=== PATIENT | male | born 2000 | race Caucasian/White ===

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

== ENCOUNTER → 2023-04-25 | Outpatient (CLI) | payer BC ==
--- NOTE | 2023-04-25 08:47 | US ---
EXAMINATION TYPE: US thyroid st tissue head/neck DATE OF EXAM: 04/25/2023 COMPARISON: NONE CLINICAL INDICATION: Male, 22 years old with history of R13.10 DYSPHAGIA; Dysphagia GLAND SIZE: Right Lobe: 4.8 x 1.8 x 1.6 cm Overall Parenchyma: homogenous Left Lobe: 5.2 x 1.5 x 1.6 cm Overall Parenchyma: homogeneous Isthmus Thickness: .2 cm NODULES RIGHT: # of nodules measured on right: 0 LEFT: # of nodules measured on left: 0 ISTHMUS: # of nodules measured in the isthmus: 0 Bilateral neck scanned, no evidence of lymphadenopathy. IMPRESSION: Mild glandular enlargement. Otherwise unremarkable study.
== END | disposition home or self-care (01) ==
LOC: RADUSWWP 08:20
PROVIDERS: ATTEND Internal Medicine Critical Care Medicine
DX: R13.10 Dysphagia, unspecified (principal); R59.0 Localized enlarged lymph nodes
CPT/HCPCS: 76536

== ENCOUNTER 2023-12-16 02:29 | Inpatient (IN) | payer BC ==
--- NOTE | 2023-12-16 03:21 | ED ---
General Adult HPI - General Chief complaint: Chest Pain Stated complaint: chest pain Time Seen by Provider: 12/16/23 02:42 Source: patient, RN notes reviewed, old records reviewed Mode of arrival: ambulatory Limitations: no limitations - History of Present Illness Initial comments: 23-year-old male with right-sided chest pain. Pain is in the right anterior chest radiating through to his right shoulder. He does report some right upper quadrant pain as well. Pain woke him from sleep. He denies prior history of pneumothorax, no history of DVT or PE. No history of CAD. There is no substernal chest pain. No lower extremity pain or swelling. No preceding cough or fever. Denies illicit drugs. - Related Data Home Medications Medication Instructions Recorded Confirmed Albuterol Sulfate [Proair Hfa] 2 puff INHALATION RT-Q6H PRN 10/17/17 10/17/17 Budesonide/Formoterol Fumarate 2 puff INHALATION RT-BID PRN 10/17/17 10/17/17 [Symbicort 160-4.5 Mcg Inhaler] Montelukast [Singulair] 10 mg PO DAILY 10/17/17 10/17/17 Allergies Allergy/AdvReac Type Severity Reaction Status Date / Time No Known Allergies Allergy Verified 12/16/23 02:41 Review of Systems ROS Statement: Those systems with pertinent positive or pertinent negative responses have been documented in the HPI. ROS Other: All systems not noted in ROS Statement are negative. Past Medical History Past Medical History: Asthma History of Any Multi-Drug Resistant Organisms: None Reported Past Surgical History: No Surgical Hx Reported Past Psychological History: No Psychological Hx Reported Smoking Status: Current some day smoker, Vaper Past Alcohol Use History: Occasional Past Drug Use History: Marijuana General Exam Limitations: no limitations General appearance: alert, in no apparent distress Head exam: Present: atraumatic, normocephalic Eye exam: Present: normal appearance, PERRL ENT exam: Present: normal exam Neck exam: Present: normal inspection. Absent: tenderness, meningismus Respiratory exam: Present: normal lung sounds bilaterally. Absent: respiratory distress, wheezes Cardiovascular Exam: Present: regular rate, normal rhythm GI/Abdominal exam: Present: soft, tenderness (Right upper quadrant). Absent: distended Extremities exam: Present: normal inspection, normal capillary refill Neurological exam: Present: alert, oriented X3, CN II-XII intact. Absent: motor sensory deficit Psychiatric exam: Present: normal affect, normal mood Skin exam: Present: warm, dry, intact Course Vital Signs 12/16/23 02:37 Temperature 98.0 F Pulse Rate 64 Respiratory 20 Rate Blood Pressure 142/95 O2 Sat by Pulse 98 Oximetry Medical Decision Making - Medical Decision Making Was pt. sent in by a medical professional or institution (, [facility] [employer], urgent care, hospital, or fci...) When possible be specific @ -No Did you speak to anyone other than the patient for history (EMS, parent, family, police, friend...)? What history was obtained from this source @ -No Did you review nursing and triage notes (agree or disagree)? Why? @ -I reviewed and agree with nursing and triage notes Were old charts reviewed (outside hosp., previous admission, EMS record, old EKG, old radiological studies, urgent care reports/EKG's, fci records)? Report findings @ -No old charts were reviewed Differential Diagnosis (chest pain, altered mental status, abdominal pain women, abdominal pain men, vaginal bleeding, weakness, fever, dyspnea, syncope, headache, dizziness, GI bleed, back pain, seizure, CVA, palpatations, mental health, musculoskeletal)? @ -[Differential Chest Pain: Stable Angina, Unstable Angina, STEMI, NSTEMI Aortic Dissection, Pneumothorax, Musculoskeletal, Esophageal Spasm GERD, Cholecystitis, Pancreatitis, Zoster, this is not meant to be an all-inclusive list. EKG interpreted by me (3pts min.). @Sinus rhythm rate of 62, MD interval 160, QRS duration 80, QTc 370, ST segment elevation in V3, V4 and V5 consistent with early repolarization, no reciprocal change. X-rays interpreted by me (1pt min.). @ -Chest x-ray negative for acute cardiopulmonary findings. CT interpreted by me (1pt min.). @ -None done U/S interpreted by me (1pt. min.). @ -Ultrasound liver and gallbladder as well as echocardiogram have been ordered, results pending. What testing was considered but not performed or refused? (CT, X-rays, U/S, labs)? Why? @ -None What meds were considered but not given or refused? Why? @ -None Did you discuss the management of the patient with other professionals (professionals i.e. , [facility] [employer], lab, RT, psych nurse, drug abuse social worker, card room manager, teacher, risk control officer, heel caser)? Give summary @ -[Dr. Slade covering for cardiology, recommends echo and serial cardiac enzymes. No heparin at this time. Discussed with Dr. Feliciano who will admit Was smoking cessation discussed for >3mins.? @ -No Was critical care preformed (if so, how long)? @ -No Were there social determinants of health that impacted care today? How? (Homele ssness, low income, unemployed, alcoholism, drug addiction, transportation, low edu. Level, literacy, decrease access to med. care, [facility], rehab)? @ -No Was there de-escalation of care discussed even if they declined (Discuss DNR or withdrawal of care, Hospice)? DNR status @ -No What co-morbidities impacted this encounter? (DM, HTN, Smoking, COPD, CAD, Cancer, CVA, ARF, Chemo, Hep., AIDS, mental health diagnosis, sleep apnea, morbid obesity)? @ -None Was patient admitted / discharged? Hospital course, mention meds given and route, prescriptions, significant lab abnormalities, going to OR and other pertinent info. @ -23-year-old male presents for evaluation of right sided chest pain radiating to the right shoulder. Patient does have some right upper quadrant abdominal tenderness on exam. He has no substernal or left-sided chest pain. Pulse exam is symmetric. Vitals are stable. EKG is sinus rhythm with ST segment elevation consistent with early repolarization without reciprocal change. Patient has normal CBC, CMP shows elevated AST and ALT. Given the abdominal tenderness with transaminitis ultrasound has been ordered. Patient also has an elevated troponin at 1.6. This is discussed with cardiology, at this time recommending serial cardiac enzymes, and echocardiogram. Patient will be admitted to his primary care provider, with cardiology on consult. Undiagnosed new problem with uncertain prognosis? @ -No Drug Therapy requiring intensive monitoring for toxicity (Heparin, Nitro, Insulin, Cardizem)? @ -No Were any procedures done? @ -No Diagnosis/symptom? @ -[Chest pain, elevated troponin, transaminitis, rule out myocarditis Acute, or Chronic, or Acute on Chronic? @ -Acute Uncomplicated (without systemic symptoms) or Complicated (systemic symptoms)? @ -Complicated Side effects of treatment? @ -No Exacerbation, Progression, or Severe Exacerbation? @ -No Poses a threat to life or bodily function? How? (Chest pain, [place], [place], pneumonia, PE, COPD, DKA, ARF, appy, cholecystitis, CVA, Diverticulitis, Homicidal, Suicidal, threat to staff... and all critical care pts) @ -Moderate risk, myocarditis, ACS - Lab Data Result diagrams: 12/16/23 03:12/16/23 03: Lab Results 12/16/23 12/16/23 12/16/23 Range/Units :24 :28 12: WBC 6.9 (3.8-10.6) k/uL RBC 5.65 (4.30-5.90) m/uL Hgb 16.9 (13.0-17.5) gm/dL Hct 47.2 (39.0-53.0) % MCV 83.6 (80.0-100.0) fL MCH 30.0 (25.0-35.0) pg MCHC 35.9 (31.0-37.0) g/dL RDW 12.7 (11.5-15.5) % Plt Count 163 (150-450) k/uL MPV 7.2 Neutrophils % (Manual) 48 % Lymphocytes % (Manual) 42 % Monocytes % (Manual) 9 % Eosinophils % (Manual) 1 % Neutrophils # (Manual) 3.31 (1.3-7.7) k/uL Lymphocytes # (Manual) 2.90 (1.0-4.8) k/uL Monocytes # (Manual) 0.62 (0-1.0) k/uL Eosinophils # (Manual) 0.07 (0-0.7) k/uL Nucleated RBCs 0 (0-0) /100 WBC Manual Slide Review Performed RBC Morphology Normal PT 11.0 (10.0-12.5) sec INR 1.0 (<1.2) APTT 27.1 (22.0-30.0) sec D-Dimer 0.28 (<0.60) mg/L FEU Sodium 138 (137-145) mmol/L Potassium 3.8 (3.5-5.1) mmol/L Chloride 104 (98-107) mmol/L Carbon Dioxide 26 (22-30) mmol/L Anion Gap 8 mmol/L BUN 14 (9-20) mg/dL Creatinine 0.87 (0.66-1.25) mg/dL Est GFR (CKD-EPI)AfAm >90 (>60 ml/min/1.73 sqM) Est GFR (CKD-EPI)NonAf >90 (>60 ml/min/1.73 sqM) Glucose 140 H (74-99) mg/dL Calcium 9.3 (8.4-10.2) mg/dL Magnesium 2.0 (1.6-2.3) mg/dL Total Bilirubin 1.1 (0.2-1.3) mg/dL AST 525 H (17-59) U/L ALT 183 H (4-49) U/L Alkaline Phosphatase 118 (38-126) U/L Troponin I (0.000-0.034) ng/mL Total Protein 8.1 (6.3-8.2) g/dL Albumin 5.0 (3.5-5.0) g/dL Lipase 194 (23-300) U/L Urine Opiates Screen (NotDetected) Ur Oxycodone Screen (NotDetected) Urine Methadone Screen (NotDetected) Ur Barbiturates Screen (NotDetected) U Tricyclic Antidepress (NotDetected) Ur Phencyclidine Scrn (NotDetected) Ur Amphetamines Screen (NotDetected) U Methamphetamines Scrn (NotDetected) U Benzodiazepines Scrn (NotDetected) Urine Cocaine Screen (NotDetected) U Marijuana (THC) Screen (NotDetected) Influenza Type A (PCR) (Not Detectd) Influenza Type B (PCR) (Not Detectd) RSV (PCR) (Not Detectd) SARS-CoV-2 (PCR) (Not Detectd) 12/16/23 12/16/23 12/16/23 Range/Units 03:24 05:26 05:38 WBC (3.8-10.6) k/uL RBC (4.30-5.90) m/uL Hgb (13.0-17.5) gm/dL Hct (39.0-53.0) % MCV (80.0-100.0) fL MCH (25.0-35.0) pg MCHC (31.0-37.0) g/dL RDW (11.5-15.5) % Plt Count (150-450) k/uL MPV Neutrophils % (Manual) % Lymphocytes % (Manual) % Monocytes % (Manual) % Eosinophils % (Manual) % Neutrophils # (Manual) (1.3-7.7) k/uL Lymphocytes # (Manual) (1.0-4.8) k/uL Monocytes # (Manual) (0-1.0) k/uL Eosinophils # (Manual) (0-0.7) k/uL Nucleated RBCs (0-0) /100 WBC Manual Slide Review RBC Morphology PT (10.0-12.5) sec INR (<1.2) APTT (22.0-30.0) sec D-Dimer (<0.60) mg/L FEU Sodium (137-145) mmol/L Potassium (3.5-5.1) mmol/L Chloride (98-107) mmol/L Carbon Dioxide (22-30) mmol/L Anion Gap mmol/L BUN (9-20) mg/dL Creatinine (0.66-1.25) mg/dL Est GFR (CKD-EPI)AfAm (>60 ml/min/1.73 sqM) Est GFR (CKD-EPI)NonAf (>60 ml/min/1.73 sqM) Glucose (74-99) mg/dL Calcium (8.4-10.2) mg/dL Magnesium (1.6-2.3) mg/dL Total Bilirubin (0.2-1.3) mg/dL AST (17-59) U/L ALT (4-49) U/L Alkaline Phosphatase (38-126) U/L Troponin I 1.670 H* 4.120 H* (0.000-0.034) ng/mL Total Protein (6.3-8.2) g/dL Albumin (3.5-5.0) g/dL Lipase (23-300) U/L Urine Opiates Screen Not Detected (NotDetected) Ur Oxycodone Screen Not Detected (NotDetected) Urine Methadone Screen Not Detected (NotDetected) Ur Barbiturates Screen Not Detected (NotDetected) U Tricyclic Antidepress Not Detected (NotDetected) Ur Phencyclidine Scrn Not Detected (NotDetected) Ur Amphetamines Screen Not Detected (NotDetected) U Methamphetamines Scrn Not Detected (NotDetected) U Benzodiazepines Scrn Not Detected (NotDetected) Urine Cocaine Screen Not Detected (NotDetected) U Marijuana (THC) Screen Detected H (NotDetected) Influenza Type A (PCR) (Not Detectd) Influenza Type B (PCR) (Not Detectd) RSV (PCR) (Not Detectd) SARS-CoV-2 (PCR) (Not Detectd) 12/16/23 Range/Units 05:38 WBC (3.8-10.6) k/uL RBC (4.30-5.90) m/uL Hgb (13.0-17.5) gm/dL Hct (39.0-53.0) % MCV (80.0-100.0) fL MCH (25.0-35.0) pg MCHC (31.0-37.0) g/dL RDW (11.5-15.5) % Plt Count (150-450) k/uL MPV Neutrophils % (Manual) % Lymphocytes % (Manual) % Monocytes % (Manual) % Eosinophils % (Manual) % Neutrophils # (Manual) (1.3-7.7) k/uL Lymphocytes # (Manual) (1.0-4.8) k/uL Monocytes # (Manual) (0-1.0) k/uL Eosinophils # (Manual) (0-0.7) k/uL Nucleated RBCs (0-0) /100 WBC Manual Slide Review RBC Morphology PT (10.0-12.5) sec INR (<1.2) APTT (22.0-30.0) sec D-Dimer (<0.60) mg/L FEU Sodium (137-145) mmol/L Potassium (3.5-5.1) mmol/L Chloride (98-107) mmol/L Carbon Dioxide (22-30) mmol/L Anion Gap mmol/L BUN (9-20) mg/dL Creatinine (0.66-1.25) mg/dL Est GFR (CKD-EPI)AfAm (>60 ml/min/1.73 sqM) Est GFR (CKD-EPI)NonAf (>60 ml/min/1.73 sqM) Glucose (74-99) mg/dL Calcium (8.4-10.2) mg/dL Magnesium (1.6-2.3) mg/dL Total Bilirubin (0.2-1.3) mg/dL AST (17-59) U/L ALT (4-49) U/L Alkaline Phosphatase (38-126) U/L Troponin I (0.000-0.034) ng/mL Total Protein (6.3-8.2) g/dL Albumin (3.5-5.0) g/dL Lipase (23-300) U/L Urine Opiates Screen (NotDetected) Ur Oxycodone Screen (NotDetected) Urine Methadone Screen (NotDetected) Ur Barbiturates Screen (NotDetected) U Tricyclic Antidepress (NotDetected) Ur Phencyclidine Scrn (NotDetected) Ur Amphetamines Screen (NotDetected) U Methamphetamines Scrn (NotDetected) U Benzodiazepines Scrn (NotDetected) Urine Cocaine Screen (NotDetected) U Marijuana (THC) Screen (NotDetected) Influenza Type A (PCR) Not Detected (Not Detectd) Influenza Type B (PCR) Not Detected (Not Detectd) RSV (PCR) Not Detected (Not Detectd) SARS-CoV-2 (PCR) Not Detected (Not Detectd) Disposition Clinical Impression: Atypical chest pain, Transaminitis, Elevated troponin Disposition: ADMITTED IP TO THIS HOSP Condition: Stable Is patient prescribed a controlled substance at d/c from ED?: No Referrals: Ramez Arriaza Jr, DO [Primary Care Provider] - 1-2 days Time of Disposition: 05:56
[2023-12-16] MEDS: KETOROLAC 15 MG/ML 1 ML VIAL IVP STA (03:26)
[2023-12-16 03:49] LABS: HCT 47.2 % (39.0-53.0); HGB 16.9 gm/dL (13.0-17.5); MCHC 35.9 g/dL (31.0-37.0); MCV 83.6 fL (80.0-100.0); Mean Platelet Volume 7.2; Platelet Count 163 k/uL (150-450); RBC 5.65 m/uL (4.30-5.90); RDW 12.7 % (11.5-15.5); WBC 6.9 k/uL (3.8-10.6)
[2023-12-16 03:53] LABS: ALT 183 U/L (4-49); AST 525 U/L (17-59); African American GFR (CKD) >90 (>60 ml/min/1.73 sqM); Alkaline Phosphatase 118 U/L (38-126); Anion Gap 8 mmol/L; Blood Urea Nitrogen 14 mg/dL (9-20); Calcium 9.3 mg/dL (8.4-10.2); Carbon Dioxide 26 mmol/L (22-30); Chloride 104 mmol/L (98-107); Glucose 140 mg/dL (74-99); Lipase 194 U/L (23-300); Non-African American GFR(CKD) >90 (>60 ml/min/1.73 sqM); Potassium 3.8 mmol/L (3.5-5.1); Sodium 138 mmol/L (137-145); Total Bilirubin 1.1 mg/dL (0.2-1.3); Total Protein 8.1 g/dL (6.3-8.2)
[2023-12-16 04:00] LABS: Partial Thromboplastin Time 27.1 sec (22.0-30.0)
[2023-12-16 05:01] LABS: RBC Morphology Normal
[2023-12-16 05:17] LABS: Eosinophils # (M) 0.07 k/uL (0-0.7); Monocytes # (M) 0.62 k/uL (0-1.0); Neutrophils # (M) 3.31 k/uL (1.3-7.7); Neutrophils % (M) 48 %; Nucleated Red Blood Cells 0 /100 WBC (0-0); Total Cells Counted 100
[2023-12-16] MEDS: ASPIRIN 325 MG TAB PO STA (05:28)
[2023-12-16 05:58] LABS: Amphetamine Screen,Urine Not Detected (NotDetected); Barbiturate Screen,Urine Not Detected (NotDetected); Benzodiazepines Screen,Urine Not Detected (NotDetected); Cocaine Screen,Urine Not Detected (NotDetected); Methadone Screen, Urine Not Detected (NotDetected); Opiate Screen,Urine Not Detected (NotDetected); Oxycodone Screen, Urine Not Detected (NotDetected); Phencyclidine Screen,Urine Not Detected (NotDetected); Tricyclic Antidepressant,Urine Not Detected (NotDetected); Urn Cannabinoid Scrn Detected (NotDetected)
[2023-12-16] MEDS ORDERED: ONDANSETRON 4 MG/2 ML VIAL IVP PRN (06:34)
[2023-12-16] MEDS ORDERED: NALOXONE 0.4 MG/ML 1 ML VIAL IV PRN (06:34)
[2023-12-16] MEDS ORDERED: IBUPROFEN 400 MG TAB PO PRN (06:34)
[2023-12-16] MEDS: SODIUM CHLORIDE 0.9% 1,000 ML IV SCH ×2 (07:00→18:59)
--- NOTE | 2023-12-16 07:33 | XR ---
EXAMINATION TYPE: XR chest 2V DATE OF EXAM: 12/16/2023 COMPARISON: 08/13/2018 HISTORY: 23 year-old male shortness of breath TECHNIQUE: PA and lateral views FINDINGS: Heart normal size. Aorta and pulmonary vasculature within normal limits. No consolidation or pleural effusion. IMPRESSION: No acute cardiopulmonary process.
--- NOTE | 2023-12-16 07:52 | US ---
EXAMINATION TYPE: US gallbladder DATE OF EXAM: 12/16/2023 COMPARISON: None CLINICAL INDICATION: Male, 23 years old with history of RUQ pain; Chest pain TECHNIQUE: Multiple sonographic images of the right upper quadrant are obtained. FINDINGS: EXAM MEASUREMENTS: Liver Length: 15.5 cm Gallbladder Wall: 0.2 cm CBD: 0.3 cm Right Kidney: 10.9 x 4.6 x 4.8 cm Pancreas: obscured by overlying midline bowel gas Liver: wnl Gallbladder: wnl Evidence for sonographic Richey's sign: no CBD: wnl Right Kidney: wnl IMPRESSION: No gallstones or biliary ductal dilatation. Suboptimal visualization of pancreas due to shadowing fro m bowel gas. Otherwise, no specific abnormality seen in the right upper quadrant.
[2023-12-16] MEDS ORDERED: NITROGLYCERIN SL TABS 0.4 MG TAB SUBLINGUAL PRN (09:10)
[2023-12-16] MEDS ORDERED: ASPIRIN 325 MG TAB PO STA (09:10)
[2023-12-16] MEDS ORDERED: ALPRAZolam 0.5 MG TAB PO PRN (09:10)
[2023-12-16] MEDS ORDERED: ALPRAZolam 0.25 MG TAB PO PRN (09:10)
[2023-12-16] MEDS: ATORVASTATIN 80 MG TAB PO STA (10:56)
[2023-12-16] MEDS: PANTOPRAZOLE 40 MG/10 ML VIAL IVP SCH (10:57)
--- NOTE | 2023-12-16 11:19 | CA ---
Transthoracic Echo Report Name: Osito Blount Age: 23 Gender: M : 2000 Exam Date: 12/16/2023 08:27 Exam Location: [facility] Ht (in): 65 Wt (lb): 145 Ordering Physician: Matthew Zhao MD Attending/Referring Phys: [id number], Cece Credit Controller Katelyn Benitez RDCS Procedure CPT: Indications: CP/NSTEMI Cardiac Hx: Technical Quality: Good Contrast 1: Total Dose (mL): Contrast 2: Total Dose (mL): MEASUREMENTS (Male / Female) Normal Values 2D ECHO LV Diastolic Diameter PLAX 4.5 cm 4.2 - 5.9 / 3.9 - 5.3 cm LV Systolic Diameter PLAX 3.1 cm IVS Diastolic Thickness 0.8 cm 0.6 - 1.0 / 0.6 - 0.9 cm LVPW Diastolic Thickness 0.9 cm 0.6 - 1.0 / 0.6 - 0.9 cm LV Relative Wall Thickness 0.4 RV Internal Dim ED PLAX 3.1 cm LA Systolic Diameter LX 3.3 cm 3.0 - 4.0 / 2.7 - 3.8 cm LV Diastolic Volume MOD 4C 99.0 cm??? LV Systolic Volume MOD 4C 48.2 cm??? LV Ejection Fraction MOD 4C 51.3 % LV Cardiac Index MOD 4C 1893.4 cm???/min???m??? LV Diastolic Length 4C 9.5 cm LV Systolic Length 4C 7.8 cm LV Diastolic Volume MOD 2C 130.9 cm??? LV Systolic Volume MOD 2C 51.8 cm??? LV Ejection Fraction MOD 2C 60.5 % LV Cardiac Index MOD 2C 2948.5 cm???/min???m??? LV Diastolic Length 2C 9.7 cm LV Systolic Length 2C 7.6 cm M-MODE Aortic Root Diameter MM 2.7 cm DOPPLER AV Peak Velocity 157.0 cm/s AV Peak Gradient 9.9 mmHg MV Area PHT 2.8 cm??? Mitral E Point Velocity 89.6 cm/s Mitral A Point Velocity 71.8 cm/s Mitral E to A Ratio 1.2 MV Deceleration Time 270.9 ms FINDINGS Left Ventricle Left ventricular ejection fraction is estimated at 60-65 %. Left ventricular cavity size normal. Left ventricular wall thickness normal. Normal left ventricular wall motion. Right Ventricle Normal right ventricular size. Unable to estimate the right ventricular systolic pressure. Right Atrium Normal right atrial size. Left Atrium Normal left atrial size. Mitral Valve Structurally normal mitral valve. No mitral stenosis, regurgitation or prolapse. Aortic Valve Trileaflet aortic valve. No aortic valve stenosis or regurgitation. Tricuspid Valve Structurally normal tricuspid valve. No tricuspid stenosis, regurgitation or prolapse. Pulmonic Valve Structurally normal pulmonic valve. No pulmonic regurgitation. Pericardium No pericardial effusion. Aorta Normal size aortic root and proximal ascending aorta. CONCLUSIONS Normal biventricular dimension and systolic function The aortic valve is probably trileaflet valve. On some views is hard to exclude bicuspid aortic valve No evidence of pericardial effusion Previewed by: Dr. Tad Boyle MD (Electronically Signed) Final Date: 16 December 2023 11:18
[2023-12-16] MEDS ORDERED: fentaNYL (PF) 50 MCG/ML 2 ML AMP ONE (12:52)
[2023-12-16] MEDS ORDERED: HEPARIN SODIUM 1,000 UN/ML (10ML VL) ONE (12:52)
[2023-12-16] MEDS ORDERED: LIDOCAINE 1% INJ 10MG/ML (20 ML MDV) ONE (12:53)
[2023-12-16] MEDS ORDERED: VERAPAMIL 2.5 MG/ML 2 ML AMP ONE (12:53)
[2023-12-16] MEDS: IV FLUID CONTINUATION 1,000 ML IV ONE (13:00)
[2023-12-16] MEDS: MIDAZOLAM 2 MG/2 ML VIAL IVP ONE ×2 (13:34→13:47)
[2023-12-16] MEDS: fentaNYL (PF) 50 MCG/ML 2 ML AMP IVP ONE (13:34)
[2023-12-16] MEDS: LIDOCAINE 1% INJ 10MG/ML (20 ML MDV) SQ ONE (13:35)
[2023-12-16] MEDS: VERAPAMIL SYRINGE (5 MG/10 ML) INTRAARTER ONE (13:40)
[2023-12-16] MEDS: HEPARIN SODIUM 1,000 UN/ML (10ML VL) IVP ONE (13:42)
--- NOTE | 2023-12-16 13:44 | P.CRDCN ---
History of Present Illness Consult date: 12/16/23 Consult reason: chest pain History of present illness: History of present illness: This is a 23-year-old male with no previous cardiac history does not follow with a university professor. He has a past medical history of asthma. We have been asked to evaluate patient for elevated troponin rule out myocarditis. Patient states that around 2 AM he developed excruciating chest pain that was an 8/10. He also had a little shortness of breath with this. It has subsided by about 4:30 in the morning. He states the pain was on the right side went through to his back and he has had problems with pain in that area in his back in the past. Chest pain is completely gone at this time. No fevers. No sweats. No lower extremity edema, no lightheadedness or dizziness, no syncopal episodes. No immediate family history of coronary artery disease but grandfather had history of CABG and CVA. Discussed results of the troponins along with EKG and recom mended cardiac catheterization for which he is willing to go through today. Patient does smoke marijuana and vapes. Occasional alcohol use. EKG normal sinus rhythm with no acute ST changes. Chest x-ray: No acute findings. Echocardiogram performed 12/16/2023 reveals normal biventricular dimensions systolic function. Aortic valve is probably trileaflet. But hard to exclude bicuspid on some views. No evidence of pericardial effusion. CBC INR, D-dimer, electrolytes, renal function are all within normal limits. Blood sugar 140. Troponin 1.67, 4.12, 3.71. AST 525, ALT 183. Magnesium 2.0. Urine drug screen positive for marijuana. Influenza A, influenza B, RSV, COVID- 19 not detected. Home cardiac medications: None Review Of Systems: At the time of my exam: CONSTITUTIONAL: Denies fever or chills. HEENT: Denies blurred vision, vision changes, or eye pain. Denies hemoptysis CARDIOVASCULAR: Denies chest pain. Denies orthopnea. Denies PND. Denies palpitations RESPIRATORY: Denies shortness of breath. GASTROINTESTINAL: Denies abdominal pain. Denies nausea or vomiting. HEMATOLOGIC: Denies bleeding disorders. GENITOURINARY: Denies any blood in urine. SKIN: Denies pruitis. Denies rash. Physical examination: Gen: This is a 23-year-old male in no acute distress VS: reviewed HEENT: Head is atraumatic, normocephalic. Pupils equal, round. Sclerae is anicteric. NECK: Supple. No JVD. LUNGS: Clear to auscultation. No wheezes or rhonchi. No intercostal retractions. HEART: Regular rate and rhythm. No murmur. ABDOMEN: Soft No tenderness. EXTREMITIES: No pedal edema. No calf tenderness. NEUROLOGICAL: Patient is awake, alert and oriented x3. Assessment: Elevated troponins of unclear significance, rule out non-ST elevated OK History of marijuana use and vaping Transaminitis Plan: Patient scheduled for cardiac catheterization today Further recommendations to follow based upon clinical course Thank you kindly for this consultation. Nurse practitioner note has been reviewed, I agree with documented findings and plan of care. Patient was seen and examined. Past Medical History Past Medical History: Asthma History of Any Multi-Drug Resistant Organisms: None Reported Past Surgical History: No Surgical Hx Reported Past Psychological History: No Psychological Hx Reported Smoking Status: Current some day smoker, Vaper Past Alcohol Use History: Occasional Past Drug Use History: Marijuana Medications and Allergies Home Medications Medication Instructions Recorded Confirmed Type No Known Home Medications 12/16/23 12/16/23 History Allergies Allergy/AdvReac Type Severity Reaction Status Date / Time No Known Allergies Allergy Verified 12/16/23 08:06 Physical Exam Vitals: Vital Signs Temp Pulse Resp BP Pulse Ox 12/16/23 06:30 61 18 127/68 96 12/16/23 06:00 92 18 141/68 97 12/16/23 05:30 74 18 124/78 95 12/16/23 05:00 64 18 138/85 96 12/16/23 04:30 74 18 133/75 99 12/16/23 04:00 69 18 133/93 97 12/16/23 02:37 98.0 F 64 20 142/95 98 Intake and Output 12/15/23 12/16/23 12/16/23 22:59 06:59 14:59 Other: Weight 65.771 kg Results 12/16/23 03:24 12/16/23 03:24 Cardiac Enzymes 12/16/23 12/16/23 12/16/23 Range/Units 03:24 03:24 05:38 AST 525 H (17-59) U/L Troponin I 1.670 H* 4.120 H* (0.000-0.034) ng/mL Coagulation 12/16/23 Range/Units 03:24 PT 11.0 (10.0-12.5) sec APTT 27.1 (22.0-30.0) sec CBC 12/16/23 Range/Units 03:24 WBC 6.9 (3.8-10.6) k/uL RBC 5.65 (4.30-5.90) m/uL Hgb 16.9 (13.0-17.5) gm/dL Hct 47.2 (39.0-53.0) % Plt Count 163 (150-450) k/uL Comprehensive Metabolic Panel 12/16/23 Range/Units 03:24 Sodium 138 (137-145) mmol/L Potassium 3.8 (3.5-5.1) mmol/L Chloride 104 (98-107) mmol/L Carbon Dioxide 26 (22-30) mmol/L BUN 14 (9-20) mg/dL Creatinine 0.87 (0.66-1.25) mg/dL Glucose 140 H (74-99) mg/dL Calcium 9.3 (8.4-10.2) mg/dL AST 525 H (17-59) U/L ALT 183 H (4-49) U/L Alkaline Phosphatase 118 (38-126) U/L Total Protein 8.1 (6.3-8.2) g/dL Albumin 5.0 (3.5-5.0) g/dL Current Medications Generic Name Dose Route Start Last Admin Trade Name Freq PRN Reason Stop Dose Admin Sodium Chloride 1,000 mls @ 75 mls/hr 12/16/23 05:30 12/16/23 07:00 Saline 0.9% IV 75 mls/hr .[id number] JORGE LUIS Administration Ibuprofen 400 mg 12/16/23 06:34 Ibuprofen 400 Mg Tab PO Q6HR PRN Mild Pain or Fever > 100.5 Naloxone HCl 0.2 mg 12/16/23 06:34 Naloxone 0.4 Mg/Ml 1 Ml Vial IV Q2M PRN Opioid Reversal Ondansetron HCl 4 mg 12/16/23 06:34 Ondansetron 4 Mg/2 Ml Vial IVP Q8HR PRN Nausea And Vomiting Intake and Output 12/15/23 12/16/2312/15/24 22:59 06:59 14:59 Other: Weight 65.771 kg 12/16/23 03:24 12/16/23 03:24
[2023-12-16] MEDS: IOPAMIDOL-370 100ML BTL INJ ONE (13:52)
[2023-12-16] MEDS ORDERED: RX INFO: IV CONTRAST WAS GIVEN 1 EACH MISC MISCELLANE PRN (14:12)
--- NOTE | 2023-12-16 14:18 | P.CARDCATH ---
Date of Procedure: 12/16/23 Description of Procedure: Cardiac Catheterization: The patient is a 23-year-old male with known history of tobacco and marijuana use who presented with symptoms of chest discomfort with no EKG changes but with troponin elevation. Recommendations were made regarding cardiac catheterization, the risks and the complications were discussed with the patient who is in full understanding and agreement. Procedure Description: Patient was brought to lab courier in fasting semi-sedated state after receiving Fentanyl and Benadryl achieiving moderate conscious sedated state. Using Xylocaine Anesthesia and modified Seldinger technique, a 6-Slovenian sheath was introduced in the right radial artery . Subsequently, selective coronary angiography was performed using a 5-Slovenian 3.5 bend Jose Martin catheter. Multiple views of the coronary artery including hemiaxial views were obtained. The 5 Slovenian pigtail catheter was used to cross the aortic valve and LVEDP was calculated. An GARIBAY view of the left ventricle was performed. Following that, catheter and sheath were removed. Hemostasis was obtained with deployment of vascular band . There was no immediate complication. Patient was returned to room in stable condition. Of note, the patient received a total of 4500 units of intravenous heparin as well as intra-arterial verapamil. Findings: Left main: This is a short size vessel, bifurcating into LAD and left circumflex, left main has no obstructive disease LAD: This is a large size vessel, reaching to the apex, giving rise to a large diagonal branch, the LAD and its branches have no obstructive disease Left circumflex: This is a large nondominant vessel giving rise to 2 obtuse marginal branch proximally the second 1 is large in caliber, the left circumflex and its branches have no obstructive disease RCA: This is a moderately sized dominant vessel giving rise to a PDA and a PLV. The right coronary artery and its branches have no obstructive disease Left Ventriculogram: Performed in the GARIBAY view and revealed normal ventricle size and systolic function with an ejection fraction of 60% there was no mitral regurgitation Hemodynamics: There was no gradient across the aortic valve, LVEDP was 6-10 mmHg Conclusion: 1. Normal coronary arteries 2. Right dominance 3. Normal ventricular size and systolic function 4. Normal LVEDP Recommendations: The patient has no evidence of obstructive disease, his presentation could be secondary to vasospasm and consistent with MINOCA or possible myocarditis, the importance of smoking cessation was discussed with the patient. The findings and the recommendations were discussed with the patient and the family and they were in full understanding and agreement. Duration of sedation is 19 minutes.
--- NOTE | 2023-12-16 17:30 | P.HPIM ---
History of Present Illness H&P Date: 12/17/23 Chief Complaint: Chest pain History and Physical and Discharge Summary: This is a 23-year-old gentleman with past medical history significant for ast hma, vaping, marijuana use -twice daily x 6 years, occasional alcohol use- consumed 2 beers on Saturday and 4 beers on Saturday (denies illicit drug use) and multiple other medical issues, apparently on no medications presented to the ER with complaints of right-sided chest pain radiating to back, awakened him early this morning around 2:00, accompanied by mild shortness of breath and subsided in a couple of hours. Reports the right-sided pain appears on his right shoulder through to the right scapula -prior sports injury, denies numbness or tingling of right extremity, denies loss of strength of the affected extremity. Reports he had stopped working out for about 6 months and returned 2 weeks ago with significant soreness with through .Followed-up with Dr. Grande of approximately 6 years ago. Denies diaphoresis. Denies fevers, cough or congestion. Denies nausea, vomiting or diarrhea. Denies lightheadedness dizziness or focal deficits. Denies syncope. Grandfathers with history of CAD. Currently denies chest pain, palpitations or shortness of breath. Maintaining O2 sats in the high 90s on room air. Chest x-ray reported no acute findings, EKG reported sinus rhythm, troponins 1.670, 4.120, third set pending. Afebrile, normal WBC hematology, coagulation unremarkable. Electrolytes, renal function within normal limits. Glucose 140. AST 525, ALT 183. Gallbladder ultrasound reported no gallstones or biliary ductal dilatation, suboptimal visualization of pancreas due to shadowing from bowel gas otherwise no specific abnormality seen in the right upper quadrant. Denies abdominal pain. toxicology detected marijuana. Viral screening negative. Echo reported normal biventricular dimension and systolic function, aortic valve probably trileaflet valve, no evidence of pericardial effusion. evaluated by cardiology, underwent cardiac catheterization reporting normal coronary arteries, right dominance, normal ventricular size and systolic function, normal left ventricular end-diastolic pressure,possible vasospasm consistent with MINOCA or possible myocarditis. Review of Systems ROS Statement: Those systems with pertinent positive or pertinent negative responses have been documented in the HPI. ROS Other: All systems not noted in ROS Statement are negative. Past Medical History Past Medical History: Asthma History of Any Multi-Drug Resistant Organisms: None Reported Past Surgical History: No Surgical Hx Reported Past Psychological History: No Psychological Hx Reported Smoking Status: Current some day smoker, Vaper Past Alcohol Use History: Occasional Past Drug Use History: Marijuana Medications and Allergies Home Medications and Allergies Comment(s): PHYSICAL EXAM: VITAL SIGNS: [As above] GENERAL: Sitting up at side of bed, alert and oriented x 3, no acute distress. HEENT: Normocephalic, conjunctivae normal. eyes normal. NECK: Supple, no JVD. No thyroid enlargement. No LNs CARDIOVASCULAR: S1, S2 regular. No murmur RESPIRATION: Unlabored , equal air entry , clear to auscultation ,breath sounds diminished in the bases. No rhonchi or crackles. No bronchial breathing. ABDOMEN: Soft, nondistended, nontender . No guarding. no masses palpable. No ascites, No hepatosplenomegaly.Bowel sounds heard. LEGS: No edema. no swelling NERVOUS SYSTEM: Cranial N 2-12 grossly normal. Moves all 4 limbs.No focal deficits. Strength and sensation grossly intact. Skin: Warm and dry, no rash Home Medications Medication Instructions Recorded Confirmed Type Aspirin 81 mg PO DAILY tab 12/17/23 Rx Clopidogrel [Plavix] 75 mg PO DAILY #30 tab 12/17/23 Rx Metoprolol Tartrate [Lopressor] 25 mg PO BID #60 tab 12/17/23 Rx Pantoprazole [Protonix] 40 mg PO AC-BRKFST #30 tab 12/17/23 Rx Allergies Allergy/AdvReac Type Severity Reaction Status Date / Time No Known Allergies Allergy Verified 12/16/23 08:06 Physical Exam Vitals: Vital Signs Temp Pulse Resp BP Pulse Ox 12/16/23 06:30 61 18 127/68 96 12/16/23 06:00 92 18 141/68 97 12/16/23 05:30 74 18 124/78 95 12/16/23 05:00 64 18 138/85 96 12/16/23 04:30 74 18 133/75 99 12/16/23 04:00 69 18 133/93 97 12/16/23 02:37 98.0 F 64 20 142/95 98 Intake and Output 12/15/23 12/16/23 12/16/23 22:59 06:59 14:59 Other: Weight 65.771 kg PHYSICAL EXAM: VITAL SIGNS: [As above] GENERAL: alert and oriented x 3, no acute distress HEENT: Normocephalic ,conjunctivae normal. eyes normal. NECK: Supple, no JVD. CARDIOVASCULAR: S1, S2 regular. No murmur RESPIRATION: Breath sounds diminished in the bases. No rhonchi or crackles. No bronchial breathing. ABDOMEN: Soft, nondistended, nontender . No guarding. no masses palpable. No ascites, No hepatosplenomegaly.Bowel sounds heard. LEGS: No edema. no swelling. No clubbing, no cyanosis. NERVOUS SYSTEM: Cranial N 2-12 grossly normal.No focal deficits. Strength and sensation grossly intact. Skin: Warm and dry, no rash Results CBC & Chem 7: 12/17/23 08:43 12/17/23 08:43 Labs: Abnormal Lab Results - Last 24 Hours (Table) 12/16/23 12/16/23 12/16/23 Range/Units 03:24 03:24 05:26 Glucose 140 H (74-99) mg/dL AST 525 H (17-59) U/L ALT 183 H (4-49) U/L Troponin I 1.670 H* (0.000-0.034) ng/mL U Marijuana (THC) Screen Detected H (NotDetected) 12/16/23 Range/Units 05:38 Glucose (74-99) mg/dL AST (17-59) U/L ALT (4-49) U/L Troponin I 4.120 H* (0.000-0.034) ng/mL U Marijuana (THC) Screen (NotDetected) Assessment and Plan Assessment: Chest pain, elevated troponins, status post cardiac catheterization reporting normal coronaries, 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 Transaminitis, possibly EtOH, possibly viral though denies recent illness or known exposure. Repeat CMP reporting AST and ALT trending down, AST 347, ALT 168. Vaping and marijuana use Plan: Continue on current medication regimen ,monitoring and symptomatic treatment. Discharge planning in progress pending further recommendations and clearance per cardiology pending. CMP repeated to trend LFTs. Smoking, alcohol and marijuana cessation reinforced. Follow-up with [facility] outpatient Discharge Medication List Aspirin 81 mg PO DAILY tab 12/17/23 [Rx] Clopidogrel [Plavix] 75 mg PO DAILY #30 tab 12/17/23 [Rx] Metoprolol Tartrate [Lopressor] 25 mg PO BID #60 tab 12/17/23 [Rx] Pantoprazole [Protonix] 40 mg PO AC-BRKFST #30 tab 12/17/23 [Rx] The impression and plan of care has been dictated as directed. : I performed a history and examination of this patient, discussed the same with the dictator. I agree with the dictator's note ,documented as a scribe. Any additional findings or plans will be noted.
[2023-12-16] MEDS: METOPROLOL TARTRATE 25 MG TAB PO SCH (20:57)
[2023-12-16] MEDS: CLOPIDOGREL 75 MG TAB PO SCH (20:57)
[2023-12-16 21:39] LABS: Chol/HDL Ratio 2.98 Ratio; LDL Cholesterol,Calculated 71.7 mg/dL (0.0-131.0); VLDL Calculation 15.42 mg/dL (5.00-40.00)
[2023-12-17] MEDS ORDERED: HEPARIN SODIUM,PORCINE (1 ML) 2,500 UNIT in SODIUM CHLORIDE 0.9% 250 ML IRRIGATION PRN (07:00)
[2023-12-17] MEDS ORDERED: HEPARIN SODIUM,PORCINE 10,000 UNIT in SODIUM CHLORIDE 0.9% 1,000 ML IRRIGATION PRN (07:00)
[2023-12-17 09:14] LABS: Basophils # (A) 0.1 k/uL (0-0.2); Basophils % (A) 1 %; Eosinophils # (A) 0.2 k/uL (0-0.7); Eosinophils % (A) 2 %; HCT 52.9 % (39.0-53.0); HGB 18.2 gm/dL (13.0-17.5); Lymphocytes # (A) 2.5 k/uL (1.0-4.8); Lymphocytes % (A) 34 %; MCH 29.3 pg (25.0-35.0); MCHC 34.3 g/dL (31.0-37.0); MCV 85.3 fL (80.0-100.0); Mean Platelet Volume 7.2; Monocytes # (A) 0.5 k/uL (0-1.0); Monocytes % (A) 7 %; Neutrophils # (A) 3.9 k/uL (1.3-7.7); Neutrophils % (A) 53 %; Platelet Count 201 k/uL (150-450); RBC 6.21 m/uL (4.30-5.90); RDW 13.5 % (11.5-15.5); WBC 7.4 k/uL (3.8-10.6)
--- NOTE | 2023-12-17 09:28 | P.PN ---
Progress Note - Text Progress Note Date: 12/16/23 Attempted to see patient, in the ER, just left,enroute to extended stay.
--- NOTE | 2023-12-17 09:29 | P.PN ---
Progress Note - Text Progress Note Date: 12/16/23 Attempted to see patient in the extended stay, just left for Forest Fire Management Officer. Presented to the Forest Fire Management Officer, patient already on the table for procedure.
[2023-12-17 09:34] LABS: ALT 168 U/L (4-49); AST 347 U/L (17-59); African American GFR (CKD) >90 (>60 ml/min/1.73 sqM); Alkaline Phosphatase 111 U/L (38-126); Anion Gap 13 mmol/L; Blood Urea Nitrogen 14 mg/dL (9-20); Calcium 9.8 mg/dL (8.4-10.2); Carbon Dioxide 26 mmol/L (22-30); Chloride 104 mmol/L (98-107); Glucose 119 mg/dL (74-99); Non-African American GFR(CKD) >90 (>60 ml/min/1.73 sqM); Sodium 143 mmol/L (137-145); Total Bilirubin 1.2 mg/dL (0.2-1.3); Total Protein 8.1 g/dL (6.3-8.2)
[2023-12-17] MEDS: ASPIRIN 81 MG PO SCH (09:56)
[2023-12-17 10:32] LABS: Potassium 3.8 mmol/L (3.5-5.1)
[2023-12-17 11:11] VITALS: RESP 17
--- NOTE | 2023-12-17 12:44 | P.PN ---
Subjective Progress Note Date: 12/17/23 Consult reason: chest pain History of present illness: This is a 23-year-old male with no previous cardiac history does not follow with a web services professional. He has a past medical history of asthma. We have been asked to evaluate patient for elevated troponin rule out myocarditis. Patient states that around 2 AM he developed excruciating chest pain that was an 8/10. He also had a little shortness of breath with this. It has subsided by about 4:30 in th e morning. He states the pain was on the right side went through to his back and he has had problems with pain in that area in his back in the past. Chest pain is completely gone at this time. No fevers. No sweats. No lower extremity edema, no lightheadedness or dizziness, no syncopal episodes. No immediate family history of coronary artery disease but grandfather had history of CABG and CVA. Discussed results of the troponins along with EKG and recommended cardiac catheterization for which he is willing to go through today. Patient does smoke marijuana and vapes. Occasional alcohol use. EKG normal sinus rhythm with no acute ST changes. Chest x-ray: No acute findings. Echocardiogram performed 12/16/2023 reveals normal biventricular dimensions systolic function. Aortic valve is probably trileaflet. But hard to exclude bicuspid on some views. No evidence of pericardial effusion. CBC INR, D-dimer, electrolytes, renal function are all within normal limits. Blood sugar 140. Troponin 1.67, 4.12, 3.71. AST 525, ALT 183. Magnesium 2.0. Urine drug screen positive for marijuana. Influenza A, influenza B, RSV, COVID- 19 not detected. Home cardiac medications: None 12/16 Yesterday, patient underwent cardiac catheterization with Dr. Kenny which revealed normal coronary arteries, right dominance, normal ventricular size and systolic function, normal LVEDP. Patient's symptoms may have been related to vasospasm and consistent with MINOCA or possible myocarditis. Discussed with patient and his parents the importance of smoking cessation which would include any tobacco products, marijuana and vaping. Patient has been ambulating in the hallway without difficulty. Blood pressure 137/83, heart rate in the 70s, pulse ox 90% on room air. Repeat blood work reveals hemoglobin of 18.2. Creatinine 0.86. He has improvement of the liver function test with AST 347 and ALT 168. Physical examination: Gen: This is a 23-year-old male in no acute distress VS: reviewed HEENT: Head is atraumatic, normocephalic. Pupils equal, round. Sclerae is anicteric. LUNGS: Clear to auscultation. No wheezes or rhonchi. No intercostal retractions. HEART: Regular rate and rhythm. No murmur. EXTREMITIES: No pedal edema. No calf tenderness. NEUROLOGICAL: Patient is awake, alert and oriented x3. Assessment: Elevated troponins possibly due to vasospasm, consistent with MINOCA or possible myocarditis History of marijuana use and vaping Transaminitis Plan: Continue patient on aspirin, Plavix, metoprolol Patient is cleared from cardiology for discharge May follow-up with Dr. Kenny in 1 week. Nurse practitioner note has been reviewed, I agree with documented findings and plan of care. Patient was seen and examined. Objective - Vital Signs Vital signs: Vital Signs Temp 97.7 F 12/17/23 08:00 Pulse 76 12/17/23 08:00 Resp 17 12/17/23 08:00 BP 137/83 12/17/23 08:00 Pulse Ox 98 12/17/23 08:00 FiO2 Intake & Output 12/16/23 12/17/23 12/17/23 18:59 06:59 18:59 Intake Total 440 358 Balance 440 358 Weight 65.771 kg Intake: IV 200 Oral 240 358 Other: Voiding Method Toilet Toilet # Voids 2 2 1 - Labs CBC & Chem 7: 12/17/23 08:43 12/17/23 08:43 Labs: Abnormal Lab Results - Last 24 Hours (Table) 12/16/23 12/17/23 12/17/23 Range/Units 11:19 08:43 08:43 RBC 6.21 H (4.30-5.90) m/uL Hgb 18.2 H (13.0-17.5) gm/dL Glucose 119 H (74-99) mg/dL AST 347 H (17-59) U/L ALT 168 H (4-49) U/L Troponin I 3.710 H* (0.000-0.034) ng/mL
[2023-12-17 13:32] VITALS: BP 95/67; PULSE 89; TEMP 98.2
[2023-12-18] MEDS ORDERED: PANTOPRAZOLE 40 MG TABLET PO SCH (07:30)
== END 2023-12-17 13:22 | disposition home or self-care (01) | DRG 282 ==
LOC: EC 02:29 → 3SCARD 06:35
PROVIDERS: ADMIT Family Medicine; ATTEND Family Medicine
PROC: B2111ZZ Fluoroscopy of Multiple Coronary Arteries using Low Osmolar Contrast (ICD-10-PCS; 2023-12-16)
PROC: B2151ZZ Fluoroscopy of Left Heart using Low Osmolar Contrast (ICD-10-PCS; 2023-12-16)
PROC: 4A023N7 Measurement of Cardiac Sampling and Pressure, Left Heart, Percutaneous Approach (ICD-10-PCS; principal; 2023-12-16 12:50)
DX: I21.B Myocardial infarction with coronary microvascular dysfunction (principal); R74.01 Elevation of levels of liver transaminase levels; F17.290 Nicotine dependence, other tobacco product, uncomplicated; J45.909 Unspecified asthma, uncomplicated; I51.4 Myocarditis, unspecified; Z79.02 Long term (current) use of antithrombotics/antiplatelets; Z79.82 Long term (current) use of aspirin; Z79.51 Long term (current) use of inhaled steroids; Z79.899 Other long term (current) drug therapy; Z82.49 Family history of ischemic heart disease and other diseases of the circulatory system
CPT/HCPCS: 36415; 71046; 76705; 80053; 80061; 80306; 83690; 83735; 84484; 85025; 85379; 85610; 85730; 87636; 93005; 93306; 93458; 96360; 96361; 96375; 99285

== ENCOUNTER → 2024-01-23 | Outpatient (CLI) | payer BC ==
[2024-01-23 18:02] LABS: ALT 39 U/L (4-49); AST 31 U/L (17-59); African American GFR (CKD) >90 (>60 ml/min/1.73 sqM); Albumin 4.7 g/dL (3.5-5.0); Albumin/Globulin Ratio 1.5; Alkaline Phosphatase 95 U/L (38-126); Anion Gap 9 mmol/L; Blood Urea Nitrogen 18 mg/dL (9-20); Calcium 9.3 mg/dL (8.4-10.2); Carbon Dioxide 29 mmol/L (22-30); Chloride 102 mmol/L (98-107); Globulin 3.1 g/dL; Glucose 102 mg/dL (74-99); Lipase 216 U/L (23-300); Non-African American GFR(CKD) >90 (>60 ml/min/1.73 sqM); Potassium 4.3 mmol/L (3.5-5.1); Sodium 140 mmol/L (137-145); Total Bilirubin 0.5 mg/dL (0.2-1.3); Total Protein 7.8 g/dL (6.3-8.2)
--- NOTE | 2024-01-31 17:52 | CT ---
EXAMINATION TYPE: CT abdomen w con CT DLP: 395.60 mGycm, Automated exposure control for dose reduction was used. DATE OF EXAM: 01/23/2024 6:16 PM COMPARISON: None. CLINICAL INDICATION:Male, 23 years old with history of R10.11 RUQ PAIN; RUQ to mid abdominal pain wit h some chest discomfort with abnormal liver function test TECHNIQUE: Axial CT of the abdomen . Sagittal and coronal reformats were created on a separate works tation. Contrast used:100ml mL of Isovue 300 with IV Contrast, (none if empty) Oral contrast used: with Oral Contrast FINDINGS: LOWER CHEST: Unremarkable ABDOMEN LIVER: Unremarkable GALLBLADDER AND BILE DUCTS: Contracted gallbladder without definite calcified gallstones. Biliary maddie e appears nondilated. PANCREAS: Unremarkable. SPLEEN: Unremarkable. ADRENAL GLANDS: Unremarkable. KIDNEYS AND URETERS: Kidneys enhance symmetrically. No evidence of hydronephrosis or visible renal ca lculus. The ureters are unremarkable. Other structures incompletely included on this abdomen-only exam : STOMACH AND BOWEL: Contrast magaly ses the stomach and small bowel without evidence of obstruction or pneumatosis. The appendix not see n, likely outside the scope of the exam. Moderate stool in the visualized colon without acute abnorma lity of the visualized segments. PERITONEUM/RETROPERITONEUM: No evidence of pneumoperitoneum or free fluid. VASCULATURE: Aorta, celiac, SMA, renal arteries appear patent. The portal, SMV, splenic veins are pat ent. IVC appears of normal caliber. MUSCULOSKELETAL: Normal mineralization without evidence of an acute osseous abnormality. IMPRESSION: No acute abnormality in the abdomen. Contracted gallbladder.
== END | disposition home or self-care (01) ==
LOC: RADCTMAIN 16:44
PROVIDERS: ATTEND Family Medicine
DX: R10.11 Right upper quadrant pain (principal); R07.89 Other chest pain; R94.5 Abnormal results of liver function studies
CPT/HCPCS: 80053; 83690; 74160; Q9967